=== PATIENT | female | born 1975 | race Caucasian/White ===

== ENCOUNTER 2016-09-26 19:49 | Emergency (ER) | payer SELFPAY ==
[~2016-09-26] VITALS: Ht 172.7 cm; Wt 106.6 kg
[2016-09-26 20:44] LABS: OBC FLU VALID
[2016-09-26] MEDS ORDERED: AZIT250T6 PO (20:57)
[2016-09-26] MEDS ORDERED: IBUP200T77 PO (20:57)
[2016-09-26] MEDS ORDERED: OSEL75CA PO (20:57)
--- NOTE | 2016-09-26 20:57 | PHYS DOC ---
Past Medical History Past Medical History: No Pertinent History Past Surgical History: Hysterectomy, Tubal ligation, Other Additional Past Surgical Histo: LUMPECTOMY RT BREAST X 2 Alcohol Use: None Drug Use: None Adult General Chief Complaint Chief Complaint: FEVER HPI HPI 40-year-old female presenting to the emergency department with fever cough runny nose sore throat and muscle aches. She has been taken ibuprofen which is improved her fever. Onset 2-3 days. Location generalized. Duration intermittent. No alleviating factors present. Review of systems is negative for nausea vomiting diarrhea. Pos for cough fever and runny nose. All other review of systems is negative unless otherwise noted in history of present illness. Review of Systems Review of Systems SEE ABOVE. Allergies Allergies Allergies Coded Allergies Type Severity Reaction Last Updated Verified Penicillins Allergy Intermediate 09/26/16 Yes Sulfa (Sulfonamide Antibiotics) Allergy Intermediate 09/26/16 Yes meperidine Allergy Intermediate 09/26/16 Yes nalbuphine Allergy Intermediate 09/26/16 Yes Physical Exam Physical Exam Constitutional: Well developed, well nourished, no acute distress, non-toxic appearance. HENT: Normocephalic, atraumatic, bilateral external ears normal, oropharynx moist, no oral exudates, nose normal. [] Eyes: PERRLA, EOMI, conjunctiva normal, no discharge. Neck: Normal range of motion, no tenderness, supple, no stridor. [] Cardiovascular:Heart rate regular rhythm, no murmur Lungs & Thorax: Bilateral breath sounds clear to auscultation [] Abdomen: Bowel sounds normal, soft, no tenderness, no masses, no pulsatile masses. Skin: Warm, dry, no erythema, no rash. [] Back: No tenderness, no CVA tenderness. Extremities: No tenderness, no cyanosis, no clubbing, ROM intact, no edema. [] Neurologic: Alert and oriented X 3, normal motor function, normal sensory function, no focal deficits noted. [] Psychologic: Affect normal, judgement normal, mood normal. [] Current Patient Data Vital Signs Vital Signs Date Time Temp Pulse Resp B/P Pulse Ox O2 Delivery O2 Flow Rate FiO2 09/26/16 21:05 96 16 198/91 96 Room Air 09/26/16 19:58 99.8 99.8 Lab Values Laboratory Tests Test 09/26/16 19:55 Influenza Type A Antigen Negative (NEGATIVE) Influenza Type B Antigen Positive (NEGATIVE) EKG EKG [] Radiology/Procedures Radiology/Procedures [] Course & Med Decision Making Course & Med Decision Making Pertinent Labs and Imaging studies reviewed. (See chart for details) [] 40-year-old female presenting to the emergency department with cough fever runny nose and muscle aches consistent with influenza-like symptoms. Vital signs showed mild hypertension. Afebrile here in our emergency department. Pertinent physical exam findings normal pulmonary exam. Nontender abdomen. Otherwise well-appearing individual. EKG shows sinus tachycardia not suggestive of ischemia. Chest x-ray two-view reviewed by myself shows no obvious infiltrate or pneumothorax on the PA view, lateral view shows radio opacification of the retrocardiac space possibly viral. Influenza testing positive. The patient was treated with Tamiflu and azithromycin given the radio opacification on lateral view. Ibuprofen as needed for pain and fever. Follow- up with doctor over the next 4-5 days if her symptoms do not improve. Dragon Disclaimer Dragon Disclaimer This electronic medical record was generated, in whole or in part, using a voice recognition dictation system. Departure Departure Impression: Primary Impression: Influenza Disposition: ADMITTED INPATIENT Condition: STABLE Referrals: NO PCP (PCP) VIANCA HOWARD MD Patient Instructions: Influenza, Adult Additional Instructions: Thank you for allowing us to participate in your care today. Followup with your primary care physician in 3 days if your symptoms do not improve. If you do not have a primary care provider you can ask for a list of our primary care providers. Return to the emergency department you have any new or concerning findings. This should be evaluated by the primary care physician and any necessary consulting services for continued management within a few days after discharge. Return to emergency room if you have any new or concerning symptoms including but not limited to fever, chills, nausea, vomiting, intractable pain, any new rashes, chest pain, shortness of air, uncontrolled bleeding, difficulty breathing, and/or vision loss. Scripts Azithromycin (Azithromycin Tablet)250 Mg Tablet1 Pkg PO UD #6 TAB Prov:DEVEN CLARK MD 09/26/16 Ibuprofen 200 Mg [id number] Mg PO PRN Q6HRS PRN INFLAMMATION #30 TAB Prov:DEVEN CLARK MD 09/26/16 Oseltamivir Phosphate (Tamiflu)75 Mg Capsule1 Cap PO BID #10 CAP Prov:DEVEN CLARK MD 09/26/16 DEVEN CLARK MD Sep 26, 2016 20:57
[2016-09-26 21:05] VITALS: BP 198/91
--- NOTE | 2016-09-27 06:36 | EKG ---
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
--- NOTE | 2016-09-27 07:38 | RAD ---
EXAM: Chest 2 views. HISTORY: Cough, dyspnea, fever. COMPARISON: None. FINDINGS: Frontal and lateral views of the chest are obtained. There are no confluent infiltrates. There is no pneumothorax or pleural effusion. The heart is not enlarged. IMPRESSION: 1. No confluent infiltrates.
== END 2016-09-26 21:10 | disposition home or self-care (01) ==
LOC: ER 19:49
DX: J11.1 Influenza due to unidentified influenza virus with other respiratory manifestations (principal); Z90.710 Acquired absence of both cervix and uterus; Z98.51 Tubal ligation status; Z88.2 Allergy status to sulfonamides; Z88.0 Allergy status to penicillin; Z88.8 Allergy status to other drugs, medicaments and biological substances
CPT/HCPCS: 71020; 87804; 93005; 99285-25

== ENCOUNTER 2017-11-28 09:29 | Emergency (ER) | payer SELFPAY ==
[2017-11-29 10:19] LABS: NEGATIVE OBC STREP NEG; POSITIVE OBC STREP POS
== END 2017-11-28 12:08 | disposition home or self-care (01) ==
LOC: ER 12:08
DX: J02.0 Streptococcal pharyngitis (principal); Z90.710 Acquired absence of both cervix and uterus; Z88.0 Allergy status to penicillin; Z88.2 Allergy status to sulfonamides; Z88.8 Allergy status to other drugs, medicaments and biological substances
CPT/HCPCS: 87880; 99283

== ENCOUNTER 2017-12-02 21:38 | Emergency (ER) | payer SELFPAY ==
[2017-12-03 00:40] LABS: ADD MAN DIFF? NO
[2017-12-03 00:42] LABS: BASO # 0.1 x10^3/uL (0.0-0.2); BASO % 1 % (0-3); EOS % 0 % (0-3); HEMATOCRIT 38.7 % (36.0-47.0); HEMOGLOBIN 13.1 g/dL (12.0-15.5); LYMPH # 2.2 x10^3/uL (1.0-4.8); LYMPH % 22 % (24-48); MEAN CORPUSCULAR HEMOGLOBIN 29 pg (25-35); MEAN CORPUSCULAR HGB CONC 34 g/dL (31-37); MEAN CORPUSCULAR VOLUME 85 fL (79-100); MONO # 0.7 x10^3/uL (0.0-1.1); MONO % 7 % (0-9); NEUT # 7.2 x10^3uL (1.8-7.7); NEUT % 71 % (31-73); PLATELET COUNT 400 x10^3/uL (140-400); RED BLOOD COUNT 4.53 x10^6/uL (3.50-5.40)
[2017-12-03] MEDS: OXYMETAZOLINE 0.05% NASAL SPRAY 30ML BOTTLE. NS (00:48)
[2017-12-03 01:05] LABS: ANION GAP 11 (6-14); BLOOD UREA NITROGEN 20 mg/dL (7-20); BUN/CREATININE RATIO 18 (6-20); CARBON DIOXIDE 26 mmol/L (21-32); CHLORIDE 104 mmol/L (98-107); CREATININE 1.1 mg/dL (0.6-1.0); GFR 54.2; GLUCOSE 183 mg/dL (70-99); POTASSIUM 3.8 mmol/L (3.5-5.1); SODIUM 141 mmol/L (136-145)
[2017-12-03 01:11] LABS: ALBUMIN 3.3 g/dL (3.4-5.0); ALBUMIN/GLOBULIN RATIO 0.7 (1.0-1.7); ALK PHOS 93 U/L (46-116); ALT (SGPT) 56 U/L (14-59); AST (SGOT) 30 U/L (15-37); TOTAL BILIRUBIN 0.3 mg/dL (0.2-1.0); TOTAL PROTEIN 7.9 g/dL (6.4-8.2)
== END 2017-12-03 01:39 | disposition home or self-care (01) ==
LOC: ER 21:38
DX: J02.0 Streptococcal pharyngitis (principal); R20.2 Paresthesia of skin; M79.645 Pain in left finger(s); M79.644 Pain in right finger(s); R04.0 Epistaxis; Z88.0 Allergy status to penicillin; Z88.2 Allergy status to sulfonamides; Z88.5 Allergy status to narcotic agent; Z90.710 Acquired absence of both cervix and uterus; Z98.51 Tubal ligation status
CPT/HCPCS: 36415; 80053; 85025; 99284

== ENCOUNTER 2018-12-13 13:45 | Emergency (ER) | payer SELFPAY ==
[~2018-12-13] VITALS: Ht 167.6 cm; Wt 109.8 kg
[~2018-12-13 13:45] MED LIST: AZIT1PAC9 PO; AZIT250T PO; AZIT250T6 PO; IBUP200T77 PO; OSEL75CA PO; PRED50TA PO
[2018-12-13 13:55] VITALS: BP 200/96
[2018-12-13] MEDS ORDERED: predniSONE 20 MG TABLET PO ONE (14:30)
[2018-12-13] MEDS ORDERED: PRED20TA PO (14:52)
[2018-12-13] MEDS ORDERED: ALBU2.5V8 INH (14:52)
--- NOTE | 2018-12-13 14:52 | PHYS DOC ---
Past Medical History Past Medical History: No Pertinent History Past Surgical History: Hysterectomy, Tubal ligation, Other Additional Past Surgical Histo: LUMPECTOMY RT BREAST X 2 Alcohol Use: None Drug Use: None Adult General Chief Complaint Chief Complaint: COUGH HPI HPI 43-year-old female presents to ER for complaints of one week history of nonproductive cough, sneezing, and cold-like illness. She reports her daughter as well as her granddaughter both have similar illnesses. Patient states she had fever this morning and took ibuprofen 3. She is afebrile at triage 97.7. Patient denies chest pain or tightness. She reports she has had some urinary stress incontinence when she coughs or sneezes- she denies having concerns for UTI. She denies being a daily smoker. She reports she does have someone who lives wit h her who is a smoker. Review of Systems Review of Systems Constitutional: Denies fever or chills [] Eyes: Denies change in visual acuity, redness, or eye pain [] HENT: Denies nasal congestion. Reports sore throat/muffled voice- denies difficulty swallowing Respiratory: Denies shortness of breath. Reports nonprod. cough Cardiovascular: Denies CP/tightness GI: Denies abdominal pain, nausea, vomiting, bloody stools or diarrhea [] : Denies dysuria or hematuria [] Musculoskeletal: Denies back./neck pain/stiffness or joint pain [] Integument: Denies rash or skin lesions [] Neurologic: Denies headache, focal weakness or sensory changes [] All other systems were reviewed and found to be within normal limits, except as documented in this note. Current Medications Current Medications Current Medications Medications (Trade) Dose Ordered Sig/Kelsey Start Time Stop Time Status Last Admin Dose Admin Prednisone (Prednisone) 40 mg 1X ONCE 12/13/18 14:30 12/13/18 14:32 DC 12/13/18 14:35 40 MG Allergies Allergies Allergies Coded Allergies Type Severity Reaction Last Updated Verified Penicillins Allergy Intermediate 09/26/16 Yes Sulfa (Sulfonamide Antibiotics) Allergy Intermediate 09/26/16 Yes meperidine Allergy Intermediate 09/26/16 Yes nalbuphine Allergy Intermediate 09/26/16 Yes Physical Exam Physical Exam Constitutional: Well developed, well nourished, no acute distress, non-toxic appearance. Clear speech- voice not muffled. No difficulty swallowing HENT: Normocephalic, atraumatic, bilateral external ears normal, oropharynx moist- bilat. tonsillar swelling/erythema, no oral exudates, nose normal. [] Eyes: Pupils equal, conjunctiva normal, no discharge. [] Neck: Normal range of motion, no tenderness/nuchal rigidity, supple, no stridor/gross adenopathy Cardiovascular: Heart rate regular rhythm, no murmur [] Lungs & Thorax: Bilateral breath sounds clear to auscultation- respirations equal and nonlabored. Good air movement throughout all lung you Abdomen: Bowel sounds normal, soft, no tenderness Skin: Warm, dry, no erythema, no rash. [] Back: No tenderness, no CVA tenderness. [] Extremities: No tenderness, no cyanosis, no clubbing, ROM intact, no edema. [] Neurologic: Alert and oriented X 3, normal motor function, normal sensory function, no focal deficits noted. [] Psychologic: Affect normal, judgement normal, mood normal. [] Current Patient Data Vital Signs Vital Signs Date Time Temp Pulse Resp B/P (MAP) Pulse Ox O2 Delivery O2 Flow Rate FiO2 12/13/18 13:55 97.7 74 20 200/96 (130) 97 Room Air 97.7 EKG EKG [] Radiology/Procedures Radiology/Procedures [] Course & Med Decision Making Course & Med Decision Making Pertinent Labs reviewed. (See chart for details) Pt was evaluated in the ER for nonproductive cough and cold like illness. Patient had negative strep test-was discussed with her. Discussed probable viral illness. She was given dose of prednisone while in the ER and will provide prescription with discharge paperwork along with albuterol inhaler for coughing episodes. Patient encouraged to increase fluid intake take daily.Education provided on signs and symptoms to return to ER. Discharge instructions were discussed. Patient to follow-up with primary care physician if symptoms persist or with any concerns. Dragon Disclaimer Dragon Disclaimer This electronic medical record was generated, in whole or in part, using a voice recognition dictation system. Departure Departure Impression: Primary Impression: Cough Additional Impression: Viral syndrome Disposition: 01 HOME, SELF-CARE Condition: STABLE Referrals: NO PCP (PCP) Patient Instructions: Cough, Adult, Viral Syndrome Additional Instructions: Drink plenty of water daily. Tylenol and/or ibuprofen as needed for pain and fever control as directed on container. If symptoms persist follow-up with your primary care physician for further care and reevaluation. Scripts Prednisone (PREDNISONE) 20 Mg Tablet 2 TAB PO DAILY, #8 TAB 0 Refills Start 12/14/18 Prov: VIPUL WARREN APRN 12/13/18 Albuterol Sulfate (PROAIR HFA INHALER) 8.5 Gm Hfa.aer.ad 1 PUFF INH PRN Q6HRS PRN for COUGH, #1 INHALER 0 Refills Prov: VIPUL WARREN APRN 12/13/18 Problem Qualifiers VIPUL WARREN APRN December 13, 2018 14:52
== END 2018-12-13 15:03 | disposition home or self-care (01) ==
LOC: ER 13:45
DX: B34.9 Viral infection, unspecified (principal); R05 Cough; R06.7 Sneezing; N39.3 Stress incontinence (female) (male); M43.6 Torticollis; J02.9 Acute pharyngitis, unspecified; Z88.0 Allergy status to penicillin; Z88.2 Allergy status to sulfonamides; Z88.8 Allergy status to other drugs, medicaments and biological substances; Z90.710 Acquired absence of both cervix and uterus; Z98.51 Tubal ligation status
CPT/HCPCS: 87070; 87880; 99283; J7512

== ENCOUNTER → 2019-09-05 | Outpatient (CLI) | payer BC ==
[~2019-09-05] MED LIST changes: +ALBU2.5V8 INH; +PRED20TA PO
--- NOTE | 2019-09-05 12:52 | RAD ---
Left lower extremity venous duplex study Clinical History: Left lower extremity pain and edema Technique: Using a combination of real time ultrasound imaging and color-flow and pulse Doppler imaging techniques, including spectral analysis, graded compression and augmentation, duplex evaluation of the deep venous system of the left lower extremity was performed. Multiple images were obtained. Findings: There is no sonographic evidence of deep venous thrombosis involving the visualized deep venous structures of the left lower extremity Impression: No evidence of deep venous thrombosis involving the left lower extremity Electronically signed by: Kevin Maria MD (09/05/2019 12:49 PM) [id number]
== END | disposition home or self-care (01) ==
LOC: US 12:40
PROVIDERS: ATTEND Family Medicine
DX: R60.0 Localized edema (principal)
CPT/HCPCS: 93971

== ENCOUNTER → 2020-02-18 | Outpatient (CLI) | payer BC ==
--- NOTE | 2020-02-18 08:16 | RAD ---
ABDOMEN LTD INDICATION: Reason: RUQ PAIN / Spl. Instructions: / History: COMPARISON: None. TECHNIQUE: Limited transverse and longitudinal grayscale images of the right upper quadrant with color and pulsed doppler utilized as appropriate. FINDINGS: The liver demonstrates increased echogenicity without focal lesions. The liver measures 18.5 cm. The portal vein is patent with normal antegrade flow. The gallbladder is normal in appearance without stones. No wall thickening or pericholecystic fluid. Negative sonographic Jolly's sign. No intrahepatic or extrahepatic biliary dilatation. The common bile duct measures 0.5 cm. The visualized portions of the pancreas demonstrate normal echogenicity without focal lesions. The right kidney has normal echogenicity and measures 11.0 cm. No hydronephrosis, shadowing stones or suspicious masses seen. No ascites or fluid collections. The aorta and IVC are normal diameter where visualized. IMPRESSION: . 1. Hepatic steatosis. 2. Normal gallbladder. Normal caliber common bile duct Electronically signed by: Neymar Florence MD (02/18/2020 8:13 AM) [id number]
== END | disposition home or self-care (01) ==
LOC: US 06:58
PROVIDERS: ATTEND Family Medicine
DX: K76.0 Fatty (change of) liver, not elsewhere classified (principal)
CPT/HCPCS: 76705

== ENCOUNTER 2020-08-08 04:56 | Emergency (ER) | payer SELFPAY ==
[~2020-08-08] VITALS: Ht 172.7 cm; Wt 140.0 kg
[2020-08-08 05:09] VITALS: BP 163/75
--- NOTE | 2020-08-08 05:36 | PHYS DOC ---
Past Medical History Past Medical History: DVT (JUN 2019) Past Surgical History: Hysterectomy, Tubal ligation, Other Additional Past Surgical Histo: LUMPECTOMY RT BREAST X 2 Smoking Status: Former Smoker Alcohol Use: None Drug Use: None General Adult EDM: Chief Complaint: UPPER EXTREMITY PAIN HPI: HPI: Patient is a 44-year-old female presenting for left upper extremity discomfort. States this is an acute on chronic problem. Reports sleeping on her sides at night and often wakes up with [id number]-cnd-[id number] sensation throughout entire upper extremity for which she is laying on. Reports being evaluated for this in the past and was hospitalized and had MRI "of my neck and both my arms" with no significant findings present. States she woke up this morning with similar symptoms in her left upper extremity but reports associated symptoms that have never accompanied said pain before, reports generalized chest discomfort and "feeling chilled". Also admits radiation into left jaw. Timing of symptoms has been constant since onset but has improved greatly in the past 45 minutes. Nothing known makes better or worse. She has not taken anything in attempt to alleviate her pain. Denies any fever, syncope, trauma, headaches or changes in vision, sharp or ripping/tearing chest pain, shortness of breath, cough, abdominal pain, urinary symptoms, lower extremity edema, no hemoptysis, no estrogen use, has history of tobacco use but none present and no long distance travel. Patient does admit to history of DVT suffered June 2019 and unprovoked in nature, she took warfarin for 6 months and was advised to stop therapy at that time. She has not taken her combined lisinopril-hydrochl orothiazide medication this morning Review of Systems: Review of Systems: Fourteen body systems of review of systems have been reviewed. See HPI for pertinent positives and negative responses, other ayala all other systems are negative, non-pertinent or non-contributory Heart Score: HEART Score for Chest Pain: HEART Score for Chest Pain Response (Comments) Value History Slighlty/Non-Suspicious 0 ECG Normal 0 Age >45 - < 65 1 Risk Factors 1 or 2 Risk Factors 1 Troponin < Normal Limit 0 Total 2 Risk Factors: Risk Factors: DM, Current or recent (<one month) smoker, HTN, HLP, family history of CAD, obesity. Risk Scores: Score 0 - 3: 2.5% MACE over next 6 weeks - Discharge Home Score 4 - 6: 20.3% MACE over next 6 weeks - Admit for Clinical Observation Score 7 - 10: 72.7% MACE over next 6 weeks - Early Invasive Strategies Allergies: Allergies: Allergies Coded Allergies Type Severity Reaction Last Updated Verified Penicillins Allergy Intermediate 09/26/16 Yes Sulfa (Sulfonamide Antibiotics) Allergy Intermediate 09/26/16 Yes meperidine Allergy Intermediate 09/26/16 Yes nalbuphine Allergy Intermediate 09/26/16 Yes Physical Exam: PE: Constitutional: Well developed, well nourished, no acute distress, non-toxic appearance. Obese. HENT: Normocephalic, atraumatic, bilateral external ears normal, oropharynx moist, no oral exudates, nose normal. Eyes: PERRLA, EOMI, conjunctiva normal, no discharge. Neck: Normal range of motion, no tenderness, supple, no stridor. No nuchal rigidity, no carotid bruits Cardiovascular: Heart rate regular, sinus rhythm, no murmurs rubs or gallops Lungs & Thorax: Bilateral breath sounds clear to auscultation, no increased work of breathing or distress Abdomen: Bowel sounds normal, soft, no tenderness, no masses, no pulsatile masses. Nonsurgical abdomen, no peritoneal signs Skin: Warm, dry, no erythema, no rash. Back: No tenderness, no CVA tenderness. Extremities: No tenderness, no cyanosis, no clubbing, ROM intact, no edema. Negative Homans' sign bilaterally. Radial pulses to bilateral upper extremities 2+ and equal. Negative Spurling sign bilaterally Neurologic: Alert and oriented X 3, grossly normal motor & sensory function, no focal deficits noted. Psychologic: Affect normal, judgement normal, mood normal. Current Patient Data: Labs: Laboratory Tests Test 08/08/20 05:30 White Blood Count 6.8 x10^3/uL Red Blood Count 4.68 x10^6/uL Hemoglobin 13.4 g/dL Hematocrit 40.0 % Mean Corpuscular Volume 85 fL Mean Corpuscular Hemoglobin 29 pg Mean Corpuscular Hemoglobin Concent 34 g/dL Red Cell Distribution Width 14.9 % Platelet Count 316 x10^3/uL Neutrophils (%) (Auto) 60 % Lymphocytes (%) (Auto) 31 % Monocytes (%) (Auto) 6 % Eosinophils (%) (Auto) 3 % Basophils (%) (Auto) 1 % Neutrophils # (Auto) 4.0 x10^3/uL Lymphocytes # (Auto) 2.1 x10^3/uL Monocytes # (Auto) 0.4 x10^3/uL Eosinophils # (Auto) 0.2 x10^3/uL Basophils # (Auto) 0.1 x10^3/uL Sodium Level 137 mmol/L Potassium Level 3.4 mmol/L Chloride Level 102 mmol/L Carbon Dioxide Level 28 mmol/L Anion Gap 7 Blood Urea Nitrogen 15 mg/dL Creatinine 1.0 mg/dL Estimated GFR (Cockcroft-Gault) 60.0 Glucose Level 139 mg/dL Calcium Level 8.9 mg/dL Troponin I Quantitative < 0.017 ng/mL Current Medications Medications (Trade) Dose Ordered Sig/Kelsey Route PRN Reason Start Time Stop Time Status Last Admin Dose Admin Aspirin (Aspirin Chewable) 162 mg 1X ONCE PO 08/08/20 05:45 08/08/20 05:46 DC 08/08/20 05:45 Vital Signs: Vital Signs Date Time Temp Pulse Resp B/P (MAP) Pulse Ox O2 Delivery O2 Flow Rate FiO2 08/08/20 05:09 97.9 92 20 163/75 (104) 99 Room Air 97.9 EKG: EKG: EKG ordered and interpreted by myself at 0505 hrs. as sinus rhythm at 94 bpm, unremarkable intervals, no axis deviation, T wave inversions noted in leads aVF without other acute ischemic findings, no STEMI. Prior EKG performed 09/26/2016 reviewed and is unchanged from EKG obtained today Radiology/Procedures: Radiology/Procedures: EXAM: AP View of the chest DATE: 08/08/2020 5:35 AM INDICATION: Reason: chest discomfort / Spl. Instructions: / History: COMPARISON: 09/26/2016 FINDINGS: The heart is not enlarged. Mediastinal and hilar contours are normal. No focal parenchymal airspace opacity. No pleural effusion or pneumothorax. IMPRESSION: 1. No radiographic evidence for acute cardiopulmonary process. Electronically signed by: Viral Gipson MD (08/08/2020 5:56 AM) [facility] Course & Med Decision Making: Course & Med Decision Making Discussed with the patient all findings and diagnostic testing. I discussed most likely diagnosis of self-limiting musculoskeletal left upper extremity pain. I discussed the likelihood of true cardiac chest pain in etiology and reviewed heart score with patient. I also reviewed my low risk for suspicion of blood clot or other thromboembolic event in a patient given her history of presenting illness and physical exam findings but did disclose that she had elevated risk for PERC and Wells criteria, joint decision to defer work-up via D-dimer versus CTA etc. Patient felt relief with grossly negative work-up, I discussed role of potential cardiovascular observation but given low risk, joint decision was made to discharge home. As such, I stressed need for close outpatient follow-up to review today's ER visit. Strict return precautions were also discussed at length with good understanding by patient. Patient voiced understanding and agreement with the plan. Patient knows to come back for repeat evaluation if concerning signs or symptoms present prior to outpatient follow-up. Hemodynamically stable, ambulatory and well-appearing at time of disposition. Dragon Disclaimer: Karuna Disclaimer: This electronic medical record was generated, in whole or in part, using a voice recognition dictation system. Departure Departure Impression: Primary Impression: Left upper limb pain Additional Impression: Chest discomfort Disposition: 01 DC HOME SELF CARE/HOMELESS Condition: STABLE Referrals: CLAUS WU MD (PCP) Additional Instructions: You were seen for chest and left upper extremity discomfort. Your workup did not show any acute abnormalities today, but does not indicate that you do not have underlying cardiovascular disease. You do need to follow up with your primary doctor for further evaluation and treatment if indicated. You should return to the ED if you develop worsening chest pain, shortness of breath, fever, abnormal sweating, leg swelling, or any other new or concerning symptoms. It was a pleasure to take care of you and I wish you the best going forward LEX TOLENTINO DO Aug 08, 2020 05:36
[2020-08-08] MEDS ORDERED: ASPIRIN CHEWABLE 81 MG TABLET. PO ONE (05:45)
[2020-08-08 05:52] LABS: CALCIUM 8.9 mg/dL (8.5-10.1); POTASSIUM 3.4 mmol/L (3.5-5.1)
[2020-08-08 05:57] LABS: BASO # 0.1 x10^3/uL (0.0-0.2); BASO % 1 % (0-3); EOS # 0.2 x10^3/uL (0.0-0.7); EOS % 3 % (0-3); HEMOGLOBIN 13.4 g/dL (12.0-15.5); LYMPH # 2.1 x10^3/uL (1.0-4.8); LYMPH % 31 % (24-48); MEAN CORPUSCULAR HEMOGLOBIN 29 pg (25-35); MEAN CORPUSCULAR HGB CONC 34 g/dL (31-37); MEAN CORPUSCULAR VOLUME 85 fL (79-100); MONO # 0.4 x10^3/uL (0.0-1.1); MONO % 6 % (0-9); NEUT % 60 % (31-73); PLATELET COUNT 316 x10^3/uL (140-400); RED BLOOD COUNT 4.68 x10^6/uL (3.50-5.40); RED CELL DISTRIBUTION WIDTH 14.9 % (11.5-14.5); WHITE BLOOD COUNT 6.8 x10^3/uL (4.0-11.0)
--- NOTE | 2020-08-08 05:58 | RAD ---
EXAM: AP View of the chest DATE: 08/08/2020 5:35 AM INDICATION: Reason: chest discomfort / Spl. Instructions: / History: COMPARISON: 09/26/2016 FINDINGS: The heart is not enlarged. Mediastinal and hilar contours are normal. No focal parenchymal airspace opacity. No pleural effusion or pneumothorax. IMPRESSION: 1. No radiographic evidence for acute cardiopulmonary process. Electronically signed by: Viral Gipson MD (08/08/2020 5:56 AM) [facility]
--- NOTE | 2020-08-09 18:33 | EKG ---
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
== END 2020-08-08 06:10 | disposition home or self-care (01) ==
LOC: ER 04:56
DX: M79.602 Pain in left arm (principal); R07.89 Other chest pain; R20.2 Paresthesia of skin; Z90.710 Acquired absence of both cervix and uterus; Z98.51 Tubal ligation status; Z90.89 Acquired absence of other organs; Z87.891 Personal history of nicotine dependence; Z86.718 Personal history of other venous thrombosis and embolism; Z88.0 Allergy status to penicillin; Z88.2 Allergy status to sulfonamides; Z88.8 Allergy status to other drugs, medicaments and biological substances
CPT/HCPCS: 36415; 71045; 80048; 84484; 85025; 93005; 99285

== ENCOUNTER 2021-07-12 06:30 | Emergency (ER) | payer SELFPAY ==
[~2021-07-12] VITALS: Ht 172.7 cm; Wt 139.0 kg
[2021-07-12] MEDS ORDERED: ACETAMINOPHEN 500 MG TABLET PO ONE (07:30)
[2021-07-12] MEDS ORDERED: IBUPROFEN 400 MG TABLET. PO ONE (07:30)
[2021-07-12] MEDS ORDERED: IBUP-1007 PO (07:52)
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
--- NOTE | 2021-07-12 07:54 | RAD ---
Study: XR RIBS MIN 3 VIEWS LT W/PA CHEST Indication: Rib pain. Injury. Comparison: Chest radiograph 08/08/2020 Findings: The cardiomediastinal silhouette and olivia are within normal limits. No localized airspace opacity, pl eural effusion or pneumothorax. Limited evaluation of the more inferior left ribs do to patient body habitus. Possible subtle fractur e at the anterior aspect of the left eighth or ninth ribs only apparent on one view. Impression: Possible subtle nondisplaced fracture of either the anterior left eighth or ninth ribs but only seen on one view and difficult to confirm secondary to patient body habitus (see cruz image). No displaced rib fracture involving the adequately assessed ribs. No pneumothorax or pleural effusion. Electronically signed by: MERISSA LICONA MD (07/12/2021 7:52 AM) [facility]
[2021-07-12 08:00] VITALS: BP 166/89
== END 2021-07-12 08:02 | disposition home or self-care (01) ==
LOC: ER 06:30
DX: R07.89 Other chest pain (principal); I10 Essential (primary) hypertension; Z87.891 Personal history of nicotine dependence; Z86.718 Personal history of other venous thrombosis and embolism; Z88.0 Allergy status to penicillin; Z88.1 Allergy status to other antibiotic agents; Z88.2 Allergy status to sulfonamides; Z88.8 Allergy status to other drugs, medicaments and biological substances
CPT/HCPCS: 71101; 99283